=== PATIENT | female | born 1980 | race Two or more races ===

== ENCOUNTER 2016-12-29 12:05 | Observation (INO) | payer OTHER ==
--- NOTE | ~2016-12-29 | DS ---
Discharge Summary [address] [address] [facility] [place]. [address] NAME: LAINE NAPOLES : 78 STATUS : DIS Som PAT#: [id number] AGE: 36 ADM/REG DATE : 12/29/16 MR#: [id number] REPORT SERV DATE: 12/31/16 DICTATED BY: SANJUANA GONGORA DATE: 12/30/16 REPORT STATUS : Draft TRANSCRIBED BY: MODL DATE: 12/30/16 ADMISSION DATE: 12/29/2016 DISCHARGE DATE: 12/30/2016 DISCHARGE DIAGNOSES: 1. Syncopal episode, did not repeat. Orthostatic hypotension was negative. More likely vasovagal. 2. Leukocytosis, more likely stress related. The patient does not have any signs of infection. HISTORY OF PRESENT ILLNESS: This is a 36-year-old female patient, who was brought to the hospital after she had a passing out episode at home. Please see dictated H and P. HOSPITAL COURSE: She was observation status in the hospital for 24 hours due to the passing out issue with the leukocytosis. After the evaluation for any source of infection, she was thought to have a stress-related leukocytosis. Did not have any other differential abnormalities on the CBCs. She remains in stable condition. Did not have any repeated syncopal episode. She is just finishing menstrual period. I am recommending that she needs to take more intake of fluid while she is on the period time and then she and her mother voiced understanding. Overall, had a stable hospitalization. Did not repeat any episodes of passing out. Therefore, the patient will be discharged to home in stable condition, and recommended follow up with the primary care physician for a CBC. Ms. Napoles and mother voiced understanding. DISCHARGE MEDICATIONS: None. EKL/MODL Sanjuana Gongora M.D. / [id number] CC: Viry Holm M.D.
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
[2016-12-29 11:35] LABS: BASOPHILS 0.1 %; BASOPHILS ABSOLUTE 0.03 10/3/uL (0.0-0.16); EOSINOPHILS 0.2 %; EOSINOPHILS ABSOLUTE 0.04 10/3/uL (0.0-0.53); HEMATOCRIT 41.8 % (36.0-48.0); HEMOGLOBIN 14.5 g/dL (12.0-16.0); IMMATURE GRANULOCYTES 0.4 %; LYMPHOCYTES ABSOLUTE 0.74 10/3/uL (0.67-4.30); MEAN CORPUS HGB CONC 34.7 g/dL (32.0-36.0); MEAN CORPUSCULAR HEMOGLOB 30.8 pg (26.0-34.0); MEAN CORPUSCULAR VOLUME 88.7 fL (80-100); MEAN PLATELET VOLUME 10.8 fL (9.2-13.0); NEUTROPHILS 92.3 %; NEUTROPHILS ABSOLUTE 22.92 10/3/uL (2.02-8.40); PLATELET COUNT 212 10/3/uL (150-400); RBC DISTRIBUTION WIDTH 12.8 % (12.0-16.0); RED CELL COUNT 4.71 10/6/uL (4.0-5.6)
[2016-12-29 11:37] LABS: IMMATURE GRANULOCYTES ABSOLUTE 0.09 10/3/uL (0.0-0.11); MANUAL DIFF NO %; WHITE BLOOD CELLS 24.8 10/3/uL (4.5-10.5)
[2016-12-29 11:44] LABS: ASCORBIC ACID (UR NOT ORDER) NEG (NEG); BILIRUBIN, URINE NEGATIVE (NEG); ER URINALYSIS TAT 0 Hrs 13 Mins; KETONE, URINE NEGATIVE (NEG); LEUKOCYTE ESTERASE(NOT OR NEG (NEG); NITRITE (URINE) NEG (NEG); WBC (NOT ORDERED) (RFLEX) 8 (0-5)
[2016-12-29 11:44] LABS: INTERNATIONAL NORMAL RATI 1.1 UNITS (-); PARTIAL THROMBO TIME 27.3 SEC (22.5-37.2); PROTIME (NOT ORD) 13.8 SEC (12.0-14.5)
[2016-12-29 11:51] LABS: BUN (BLOOD UREA NITROGEN) 8 MG/DL (6-23); CHEST PAIN PROFILE TAT 0 Hrs 20 Mins; CHLORIDE, SERUM 105 MMOL/L (96-112); CO2 (CARBON DIOXIDE) 29 MMOL/L (24-34); CREATININE 0.81 MG/DL (0.55-1.02); GFR AFRICAN AMERICAN 108 ML/MIN (>=60); GFR NON AFRICAN AMERICAN 93 ML/MIN (>=60); GLUCOSE, SERUM 94 MG/DL (60-99); POTASSIUM, SERUM 3.9 MMOL/L (3.5-5.3); SODIUM, SERUM 143 MMOL/L (135-148); TROPONIN I <0.02 NG/ML (<0.05)
[2016-12-29 11:54] LABS: EOSINOPHILS 2 %; ER DIFF TAT 0 Hrs 23 Mins; LYMPHOCYTES 1 %; LYMPHOCYTES ABSOLUTE (CALC) 0.25 10/3/uL (0.67-4.30); MONOCYTES 4 %; MONOCYTES ABSOLUTE (CALC) 0.99 10/3/uL (0.21-1.20); NEUTROPHILS ABSOLUTE (CALC) 23.06 10/3/uL (2.02-8.40); PLATELET ESTIMATE ADQ (ADEQUATE); RBC MORPHOLOGY NORM (NORMAL); SEGMENTED NEUTROPHIL (0) 93 %; TOTAL NUCLEATED CELLS 100
[2016-12-29 11:54] LABS: INFLUENZA A SCREEN NEGATIVE (NEGATIVE); INFLUENZA B SCREEN NEGATIVE (NEGATIVE)
[2016-12-29] MEDS ORDERED: THERGRANM PO (13:18)
[2016-12-29 17:56] LABS: ALKALINE PHOSPHATASE 41 U/L (45-117); DIRECT BILIRUBIN 0.1 MG/DL (0.0-0.4); INDIRECT BILIRUBIN(NOT ORDER) 0.7 MG/DL (0.1-0.9); SGOT(AST) 15 U/L (5-40); SGPT(ALT) 19 U/L (5-65); TOTAL BILIRUBIN 0.8 MG/DL (0-1.2)
[2016-12-29 17:58] LABS: TROPONIN I <0.02 NG/ML (<0.05)
[2016-12-29 19:01] LABS: TOTAL PROTEIN 8.2 G/DL (6.0-8.5)
[2016-12-29 19:09] LABS: PROCALCITONIN 0.18 ng/mL (<0.5)
[2016-12-30 02:42] LABS: HEMOGLOBIN 13.3 g/dL (12.0-16.0); MEAN CORPUSCULAR HEMOGLOB 31.1 pg (26.0-34.0); MEAN CORPUSCULAR VOLUME 88.8 fL (80-100); MEAN PLATELET VOLUME 11.2 fL (9.2-13.0); PLATELET COUNT 225 10/3/uL (150-400); RED CELL COUNT 4.28 10/6/uL (4.0-5.6)
[2016-12-30 02:50] LABS: MANUAL DIFF YES %; WHITE BLOOD CELLS 27.1 10/3/uL (4.5-10.5)
[2016-12-30 03:14] LABS: BAND NEUTROPHILS 9 %; EOSINOPHILS 1 %; EOSINOPHILS ABSOLUTE (CALC) 0.27 10/3/uL (0.0-0.53); LYMPHOCYTES 7 %; MONOCYTES 1 %; MONOCYTES ABSOLUTE (CALC) 0.27 10/3/uL (0.21-1.20); NEUTROPHILS ABSOLUTE (CALC) 24.66 10/3/uL (2.02-8.40); SEGMENTED NEUTROPHIL (0) 82 %; TOTAL NUCLEATED CELLS 100
[2016-12-30 03:15] LABS: PLATELET ESTIMATE ADQ (ADEQUATE); RBC MORPHOLOGY NORM (NORMAL)
== END 2016-12-30 13:11 | disposition home or self-care (01) ==
LOC: ER 12:05 → CDU1 14:27
PROVIDERS: Emergency Medicine; Hospitalist
DX: R55 Syncope and collapse (principal); D72.829 Elevated white blood cell count, unspecified; Z86.73 Personal history of transient ischemic attack (TIA), and cerebral infarction without residual deficits; Z98.1 Arthrodesis status; Z79.899 Other long term (current) drug therapy
CPT/HCPCS: 71020; 72100; 80048; 80076; 81001; 83605; 83735; 84145; 84484; 84703; 85025; 85610; 85730; 87040; 87449; 87804; 93005; 99285; G0378